=== PATIENT | female | born 1950 | race Caucasian/White ===

== ENCOUNTER → 2017-12-17 | Outpatient (CLI) | payer MEDICARE, OTHER | END | disposition home or self-care (01) | LOC: CFH 08:05 | PROVIDERS: ATTEND Nurse Practitioner Critical Care Medicine | DX: M51.36 Other intervertebral disc degeneration, lumbar region (principal); M51.27 Other intervertebral disc displacement, lumbosacral region; M48.07 Spinal stenosis, lumbosacral region; M41.86 Other forms of scoliosis, lumbar region; M54.16 Radiculopathy, lumbar region | CPT/HCPCS: 72114; 72148 ==

== ENCOUNTER → 2018-01-09 | Outpatient (CLI) | payer MEDICARE, OTHER ==
[~2018-01-09] MED LIST: No meds per pt.
[2018-01-09 09:52] LABS: BASOPHILS # (AUTO) 0.03 x10^3/uL (0-0.1); BASOPHILS % (AUTO) 1 % (0-1); EOSINOPHILS # (AUTO) 0.07 x10^3/uL (0-0.4); EOSINOPHILS % (AUTO) 1 % (1-7); LYMPHOCYTES # (AUTO) 2.31 x10^3/uL (1-3.4); LYMPHOCYTES % (AUTO) 40 % (22-44); MD NO; MEAN CORPUSCULAR HEMOGLOBIN 32.1 pg (27.0-34.8); MEAN CORPUSCULAR VOLUME 94.4 fL (80-100); MEAN PLATELET VOLUME 7.9 fL (7.4-10.4); MONOCYTES # (AUTO) 0.48 x10^3/uL (0.2-0.8); MONOCYTES % (AUTO) 8 % (2-9); NEUTROPHILS # (AUTO) 2.82 x10^3/uL (1.8-6.8); NEUTROPHILS % (AUTO) 50 % (42-75); PLATELET COUNT 423 x10^3/uL (130-400); RED BLOOD COUNT 4.58 x10^6/uL (3.82-5.3); RED CELL DISTRIBUTION WIDTH 13.3 % (9.6-15.2)
[2018-01-09 09:55] LABS: MICROSCOPIC NOT IND
[2018-01-09 09:56] LABS: CULTURE INDICATED? NO
[2018-01-09 10:03] LABS: INTERNATIONAL NORMALIZED RATIO 1.05 (0.93-1.1); PROTHROMBIN TIME 10.8 Seconds (9.6-11.5)
[2018-01-09 10:05] LABS: ANION GAP 5 mmol/L (5-15); CALCIUM 8.8 mg/dL (8.5-10.1); CHLORIDE 103 mmol/L (98-107); CREATININE 0.69 mg/dL (0.55-1.02)
== END | disposition home or self-care (01) ==
LOC: STAR 08:40
PROVIDERS: ATTEND Neurological Surgery
DX: Z01.818 Encounter for other preprocedural examination (principal); M54.16 Radiculopathy, lumbar region
CPT/HCPCS: 36415; 80048; 81003; 85025; 85610; 85730; 93005

== ENCOUNTER 2018-01-14 07:26 | Day surgery (SDC) | payer MEDICARE, OTHER ==
[~2018-01-14] VITALS: Ht 152.4 cm; Wt 43.0 kg
[2018-01-14] MEDS ORDERED: LACTATED RINGERS 1,000 ML IV SCH (07:58)
[2018-01-14] MEDS ORDERED: OxyconTIN ER 10 MG TAB.ER PO ONE (08:00)
[2018-01-14] MEDS ORDERED: ACETAMINOPHEN 500 MG TABLET PO ONE (08:00)
[2018-01-14] MEDS ORDERED: GABAPENTIN 300 MG CAPSULE PO ONE (08:00)
[2018-01-14] MEDS ORDERED: FENTANYL PF 250 MCG/5ML ONE (08:34)
[2018-01-14] MEDS ORDERED: MIDAZOLAM 1 MG/ML, 2ML ONE (08:34)
[2018-01-14] MEDS ORDERED: ROCURONIUM 10MG/ML,5ML ONE (08:36)
[2018-01-14] MEDS ORDERED: NEOSTIGMINE 1 MG/ML, 10ML ONE (08:36)
[2018-01-14] MEDS ORDERED: GLYCOPYRROLATE 0.4 MG/2 ML, 2ML ONE (08:36)
[2018-01-14] MEDS ORDERED: PROPOFOL 10 MG/ML, 20ML ONE (08:37)
[2018-01-14] MEDS ORDERED: DEXAMETHASONE 4 MG/ML, 1ML ONE ×2 (08:37)
[2018-01-14] MEDS ORDERED: ONDANSETRON 2MG/ML, 2ML ONE (08:37)
[2018-01-14] MEDS ORDERED: CEFAZOLIN 1,000 MG ONE ×2 (08:38)
[2018-01-14] MEDS ORDERED: SODIUM CHLORIDE 0.9% PF 10ML ONE (08:38)
[2018-01-14] MEDS ORDERED: METHYLENE BLUE 10 MG/ML 10ML ONE (09:58)
[2018-01-14] MEDS ORDERED: THROMBIN 20,000 UNIT VIAL TP ONE (09:58)
[2018-01-14] MEDS ORDERED: BACITRACIN 50,000 UNIT ONE (09:58)
[2018-01-14] MEDS ORDERED: BUPIVACAINE/PF-EPI 0.5% 1:200K ONE (09:58)
[2018-01-14] MEDS ORDERED: PHENYLEPHRINE 10 MG/ML ONE (10:29)
[2018-01-14] MEDS ORDERED: OXYcodone 5 MG/5 ML ORAL.SOL UDC PO PRN (10:30)
[2018-01-14] MEDS ORDERED: MEPERIDINE/PF 25MG/0.5ML IVPush PRN (10:30)
[2018-01-14] MEDS ORDERED: HYDROmorphone 1 MG/ML, 1ML IV PRN (10:30)
[2018-01-14] MEDS ORDERED: MORPHINE SULFATE 4 MG/ML, 1ML IVPush PRN (10:30)
[2018-01-14] MEDS ORDERED: PROMETHAZINE 25 MG/ML, 1ML IV PRN (10:30)
[2018-01-14] MEDS ORDERED: hydrALAzine 20 MG/ML, 1ML IV PRN (10:30)
[2018-01-14] MEDS ORDERED: ONDANSETRON ODT 8 MG PO PRN (10:30)
[2018-01-14] MEDS ORDERED: LABETALOL 5MG/ML, 20ML IV PRN (10:30)
[2018-01-14] MEDS ORDERED: ONDANSETRON 2MG/ML, 2ML IV PRN (10:30)
[2018-01-14] MEDS ORDERED: PROMETHAZINE 25 MG/ML, 1ML IM PRN ×2 (10:30)
[2018-01-14] MEDS ORDERED: FENTANYL PF 100 MCG/2ML IV PRN (10:30)
[2018-01-14] MEDS ORDERED: FENTANYL PF 100 MCG/2ML ONE (10:56)
[2018-01-14] MEDS ORDERED: DIPHENHYDRAMINE 50 MG/ML, 1ML IVPush PRN (14:30)
[2018-01-14] MEDS ORDERED: DIPHENHYDRAMINE 50 MG/ML, 1ML ONE (14:33)
== END 2018-01-14 15:05 | disposition home or self-care (01) ==
LOC: OUT 07:26
PROVIDERS: ATTEND Neurological Surgery
DX: M51.16 Intervertebral disc disorders with radiculopathy, lumbar region (principal); G43.909 Migraine, unspecified, not intractable, without status migrainosus; Z98.890 Other specified postprocedural states
CPT/HCPCS: 63030; 72100; J0690; J1100; J2250; J2370; J2405; J2704; J2710; J3010; J7120; Q9968